=== PATIENT | male | born 1980 | race Native Hawaiian/Other Pacific Islander ===

== ENCOUNTER 2017-01-28 19:20 | Emergency (ER) | payer OTHER ==
[~2017-01-28] VITALS: Ht 188 cm; Wt 92.1 kg
[2017-01-28 19:59] LABS: PLATELET COUNT 242 K/uL (142-355)
[2017-01-28 20:13] VITALS: BP 142/78; TEMP 97.7
== END 2017-01-28 20:16 | disposition home or self-care (01) ==
LOC: ED 19:20
DX: R07.89 Other chest pain (principal)
CPT/HCPCS: 85027; 99282

== ENCOUNTER 2022-05-06 01:24 | Emergency (ER) | payer OTHER ==
[~2022-05-06] VITALS: Ht 188 cm; Wt 93.0 kg
[2022-05-06 01:58] VITALS: BP 136/86; TEMP 98.1
== END 2022-05-06 02:15 | disposition home or self-care (01) ==
LOC: ED 01:24
PROC: 09C47ZZ Extirpation of Matter from Left External Auditory Canal, Via Natural or Artificial Opening (ICD-10-PCS; principal; 2022-05-06)
DX: T16.2XXA Foreign body in left ear, initial encounter (principal); X58.XXXA Exposure to other specified factors, initial encounter; Y92.89 Other specified places as the place of occurrence of the external cause
CPT/HCPCS: 99283